=== PATIENT | female | born 1945 | race Caucasian/White ===

== ENCOUNTER 2017-02-02 05:35 | Day surgery (SDC) | payer MEDICARE, BC ==
--- NOTE | ~2017-02-02 | EGD ---
EGD REPORT [facility] [address] [place] [address] NAME: YAQUELIN ANTOINE : [birth year] STATUS : REG [facility]#: [id number] AGE: 71 ADM/REG DATE : 02/02/17 MR#: [id number] REPORT SERV DATE: 02/02/17 DICTATED BY: ISAAC BHAKTA DATE: 02/02/17 REPORT STATUS : Draft TRANSCRIBED BY: [facility] DATE: 02/02/17 End[facility] Center Patient Name: Yaquelin Antoine Date of : 1945 Attending MD: ISAAC BHAKTA MD Procedure Date No Time: 02/02/2017 Procedure: Colonoscopy Indications: Colon cancer screening in patient at increased risk: Family history of colon polyps Referring MD: JENNA GARCIA MD Medicines: as per anesthesia Complications: No immediate complications. Procedure: Pre-Anesthesia Assessment: - ASA Grade Assessment: II - A patient with mild systemic disease. After I obtained informed consent, the scope was passed under direct vision. Throughout the procedure, the patient's blood pressure, pulse, and oxygen saturations were monitored continuously. The PCF [id number] was introduced through the anus and advanced to the cecum, identified by appendiceal orifice and ileocecal valve. The colonoscopy was performed without difficulty. The patient tolerated the procedure. The quality of the bowel preparation was adequate to identify polyps. Findings: The perianal and digital rectal examinations were normal. A sessile polyp was found in the ascending colon. The polyp was 5 mm in size. The polyp was removed with a jumbo cold forceps. Resection and retrieval were complete. A few small and large-mouthed diverticula were found in the sigmoid colon, in the descending colon and in the transverse colon. Internal hemorrhoids were found during endoscopy and were mild. Impression: - One 5 mm polyp in the ascending colon. Resected and retrieved. - Diverticulosis in the sigmoid colon, in the descending colon and in the transverse colon. - Internal hemorrhoids. Recommendation: - Await pathology results. - Repeat colonoscopy for surveillance based on pathology results. Procedure Code(s): --- Professional --- EGD REPORT [address] [address] NAME: RISHABH ANTOINEROSALIA Arthur : [birth year] STATUS : REG [facility]#: [id number] AGE: 71 ADM/REG DATE : 02/02/17 MR#: [id number] REPORT SERV DATE: 02/02/17 DICTATED BY: ISAAC BHAKTA. DATE: 02/02/17 REPORT STATUS : Draft TRANSCRIBED BY: [employer] DATE: 02/02/17 [id number], Colonoscopy, flexible, proximal to splenic flexure; with biopsy, single or multiple Diagnosis Code(s): --- Professional --- D12.2, Benign neoplasm of ascending colon K64.8, Other hemorrhoids K57.30, Diverticulosis of large intestine without perforation or abscess without bleeding Z12.11, Encounter for screening for malignant neoplasm of colon Z83.71, Family history of colonic polyps CPT copyright 2013 [employer]. All rights reserved. The codes documented in this report are preliminary and upon french edge operator review may be revised to meet current compliance requirements. ISAAC BHAKTA MD 02/02/2017 7:39 AM This report has been signed electronically. Number of Addenda: 0 Note Initiated On: 02/02/2017 7:10 AM Scope Withdrawal Time 0 hours 8 minutes 28 seconds [id number] [place] [address]
[~2017-02-02 05:35] MED LIST: ALIGN4 MG PO; COLON HEALTH PROBIOT PO; GLUCCHONDR PO; MOBIC7.5 PO; MOTRIN IB200 MG PO; MULTIPLE VIT PO; NORCO1 TA1 PO; OS500+D PO; PCET PO; PR25 PO; PROBIOTIC GUMMIES PO; SYN.05 PO; VIACTIV PO; VITAMIN D31000 UNIT PO
== END 2017-02-02 23:59 | disposition home or self-care (01) ==
LOC: DMU 05:35
PROVIDERS: Internal Medicine Gastroenterology
PROC: 0DBK8ZZ Excision of Ascending Colon, Via Natural or Artificial Opening Endoscopic (ICD-10-PCS; principal; 2017-02-02 07:00)
DX: Z12.11 Encounter for screening for malignant neoplasm of colon (principal); K63.5 Polyp of colon; K57.30 Diverticulosis of large intestine without perforation or abscess without bleeding; K64.8 Other hemorrhoids; E03.9 Hypothyroidism, unspecified; M19.90 Unspecified osteoarthritis, unspecified site; M81.0 Age-related osteoporosis without current pathological fracture; Z83.71 Family history of colonic polyps; Z85.820 Personal history of malignant melanoma of skin; Z87.891 Personal history of nicotine dependence; Z96.652 Presence of left artificial knee joint; Z96.1 Presence of intraocular lens; Z98.41 Cataract extraction status, right eye; Z98.42 Cataract extraction status, left eye; Z98.1 Arthrodesis status; Z90.49 Acquired absence of other specified parts of digestive tract; Z98.890 Other specified postprocedural states; Z79.899 Other long term (current) drug therapy
CPT/HCPCS: 88305